=== PATIENT | male | born 1990 | race Two or more races ===

== ENCOUNTER 2018-08-27 10:29 | Emergency (ER) | payer SELFPAY ==
[~2018-08-27] VITALS: Ht 162.6 cm; Wt 72.7 kg
[2018-08-27 10:33] VITALS: Ht 162.6 cm; Wt 72.7 kg
[2018-08-27 12:01] LABS: BASOPHILS 0.3 % (0-2); EOSINOPHILS 5.3 % (0-7); HEMATOCRIT 46.4 % (42.0-54.0); IMMATURE GRANULOCYTES 0.1 % (0-5); LYMPHOCYTES 19.8 % (15-50); MCH 34.3 pg (26.0-34.0); MCHC 36.6 g/dL (31.0-37.0); MCV 93.7 fL (80.0-100.0); MEAN PLATELET VOLUME 10.1 fL (7.4-10.4); MONOCYTES 5.4 % (2-11); NEUTROPHILS 69.1 % (40-80); PLATELET COUNT 142 10x3/uL (130-400); RBC 4.95 10x6/uL (4.20-6.10); RDW 13.4 % (11.5-14.5); WBC 7.7 10x3/uL (4.8-10.8)
[2018-08-27 12:10] LABS: ALBUMIN 3.7 g/dL (3.4-5.0); ALKALINE PHOSPHATASE 157 U/L (46-116); ALT (SGPT) 67 U/L (10-68); BILIRUBIN - TOTAL 0.63 mg/dL (0.2-1.3); CALC OSMOLALITY 279 mosm/kg (275-300); CALCIUM 8.1 mg/dL (8.5-10.1); CARBON DIOXIDE 29.4 mmol/L (21.0-32.0); CHLORIDE - SERUM 104 mmol/L (98-107); CREATININE - SERUM 0.9 mg/dL (0.6-1.3); GLUCOSE 109 mg/dL (74-106); POTASSIUM - SERUM 3.9 mmol/L (3.5-5.1); PROTEIN - SERUM 8.8 g/dL (6.4-8.2); SODIUM 141 mmol/L (136-145); UREA NITROGEN 8 mg/dL (7-18); eGFR NON AFRICAN AMERICAN > 90 mL/min (90-120)
[2018-08-27 13:57] VITALS: BP 133/64
== END 2018-08-27 13:58 | disposition home or self-care (01) ==
LOC: D.ER 10:29
PROVIDERS: Family Medicine
DX: S01.91XA Laceration without foreign body of unspecified part of head, initial encounter (principal); X58.XXXA Exposure to other specified factors, initial encounter; Y93.89 Activity, other specified; Y92.89 Other specified places as the place of occurrence of the external cause; F10.129 Alcohol abuse with intoxication, unspecified